=== PATIENT | female | born 2000 | race African-American/Black ===

== ENCOUNTER 2024-12-28 06:26 | Outpatient (REF) | payer OTHER, SELFPAY ==
--- NOTE | ~2024-12-28 | US_ITS ---
CLINICAL HISTORY: EXCESSIVE BLEEDING, POST COITAL BLEED Ultrasound of the female pelvis Comparison: None provided Technique: Grayscale ultrasound with assistance of color Doppler. Transabdominal scanning performed for overall anatomy. Transvaginal scanning performed for better anatomic delineation. Findings: Anteverted uterus measures 7.0 x 3.8 x 4.3 cm. Unremarkable myometrium, no uterine fibroid is seen. Homogeneously hyperechoic endometrium, 13 mm in thickness, within normal range for secretory phase. No focal lesion or abnormal vascular flow. Normal cervix. Normal right ovary, 3.2 x 2.4 x 3.2 cm. No abnormal vascular flow. Normal left ovary, 2.7 x 1.4 x 1.6 cm. No abnormal vascular flow. No free fluid. Impression: Normal exam. This document has been electronically signed by: Mary Jarquin MD on 12/28/2024 13:18:10
== END 2024-12-28 06:27 | disposition home or self-care (01) ==
LOC: HO.UMASIMG 06:26
PROVIDERS: Visit Provider Nurse Practitioner Women's Health
DX: N92.1 Excessive and frequent menstruation with irregular cycle (principal); N93.0 Postcoital and contact bleeding; E28.2 Polycystic ovarian syndrome
CPT/HCPCS: 76830; 76856

== ENCOUNTER → 2024-12-28 12:30 | Outpatient (BNV) | payer OTHER, SELFPAY | PROVIDERS: Visit Provider Radiology Diagnostic Radiology | DX: R10.2 Pelvic and perineal pain (principal) | CPT/HCPCS: 76830; 76856 ==